=== PATIENT | female | born 1985 | race Asian ===

== ENCOUNTER 2017-08-04 18:09 | Inpatient (IN) | payer SELFPAY ==
[~2017-08-04] VITALS: Ht 150 cm; Wt 78.9 kg
[2017-08-04] MEDS ORDERED: LR 1,000 ML IV SCH ×2 (20:12→22:37)
[2017-08-04] MEDS ORDERED: CEFAZOLIN 2 GM IVPB PREMIX 50 ML IV ONE (20:15)
[2017-08-04] MEDS ORDERED: TEMAZEPAM 15 MG CAPSULE PO PRN (21:00)
[2017-08-04 21:25] LABS: MEAN CORPUSCULAR HGB CONC 34 % (32-36)
[2017-08-04 21:27] LABS: BASOPHILS % (AUTO) 0.2 % (0.0-2.0); EOSINOPHILS % (AUTO) 0.6 % (0.0-4.0); LYMPHOCYTES # (AUTO) 1.9 K/uL (1.0-5.5); LYMPHOCYTES % (AUTO) 26.1 % (20.5-51.5); MEAN CORPUSCULAR HEMOGLOBIN 32 pg (27-31); MEAN CORPUSCULAR VOLUME 93 fL (79.0-98.0); MONOCYTES # (AUTO) 0.7 K/uL (0.0-1.0); MONOCYTES % (AUTO) 8.9 % (1.7-9.3); NEUTROPHILS # (AUTO) 4.8 K/uL (1.8-7.7); NEUTROPHILS % (AUTO) 64.2 % (40.0-70.0); PLATELET COUNT (AUTO) 235 K/uL (130-430); RED CELL DISTRIBUTION WIDTH 13.9 % (9.0-15.0); WHITE BLOOD COUNT (AUTO) 7.4 K/uL (4.8-10.8)
[2017-08-04] MEDS ORDERED: DIPH-TET-PERTUS Vaccine 0.5 ML VIAL (ADACEL) I.M. ONE (21:30)
[2017-08-04] MEDS ORDERED: OXYTOCIN/NORMAL SALINE 1,000 ML IV ONE ×2 (21:49→23:12)
[2017-08-04] MEDS ORDERED: ANUSOL 1 EA SUPP.RECT (PREPARATION H) RC PRN (22:00)
[2017-08-04] MEDS ORDERED: MEASLES,MUMPS&RUBELLA VACC/PF 12500 UNIT/0.5 ML VIAL SUBQ PRN (22:00)
[2017-08-04] MEDS ORDERED: OXYCODONE/ACETAMINOPHEN 5-325 TABLET PO PRN ×2 (22:00)
[2017-08-04] MEDS ORDERED: LANOLIN 7 GM OINT. TP PRN (22:00)
[2017-08-04] MEDS ORDERED: HYDROcodone/ACETAMIN 5-325 MG TAB (NORCO/ VICODIN) PO PRN (22:00)
[2017-08-04] MEDS ORDERED: NALOXONE HCL 1 MG in NACL 0.9% 1,000 ML IV PRN ×4 (22:37)
[2017-08-04] MEDS ORDERED: MEPERIDINE HCL/PF 25 MG/ML DISP.SYRIN IVP PRN ×2 (22:45)
[2017-08-04] MEDS ORDERED: HYDROmorphone 2 MG/ML VIAL IVP PRN ×2 (22:45)
[2017-08-04] MEDS ORDERED: NALOXONE HCL 0.4 MG/ML AMP (NARCAN) IVP PRN ×3 (22:45)
[2017-08-04] MEDS ORDERED: DIPHENHYDRAMINE INJ 50 MG/ML VIAL IVP PRN (22:45)
[2017-08-04] MEDS ORDERED: DIPHENHYDRAMINE HCL 50 MG CAPSULE PO PRN (22:45)
[2017-08-04] MEDS ORDERED: HYDROmorphone 1 MG INJ. 1 MG/ML AMPUL IVP PRN (22:45)
[2017-08-04] MEDS ORDERED: ONDANSETRON HCL 4 MG/2 ML VIAL IVP PRN (22:45)
[2017-08-05] MEDS: CEFAZOLIN 1 GM IVPB PREMIX 50 ML IV SCH ×3 (01:16→12:11)
[2017-08-05 02:22] VITALS: BP_SYST 112
[2017-08-05] MEDS ORDERED: FLU VACC QS 2017-18(36MOS+)/PF 0.5 ML/SYR SYRINGE I.M. PRN (02:45)
[2017-08-05] MEDS: IBUPROFEN 600 MG TABLET PO SCH ×4 (06:00→17:32)
[2017-08-05 08:01] LABS: EOSINOPHILS % (AUTO) 0.1 % (0.0-4.0); HEMATOCRIT 34.5 % (36-48); HEMOGLOBIN 11.9 g/dL (12.0-16.0); LYMPHOCYTES # (AUTO) 1.5 K/uL (1.0-5.5); LYMPHOCYTES % (AUTO) 14.3 % (20.5-51.5); MEAN CORPUSCULAR HEMOGLOBIN 32 pg (27-31); MEAN CORPUSCULAR HGB CONC 34 % (32-36); MEAN CORPUSCULAR VOLUME 93 fL (79.0-98.0); MONOCYTES # (AUTO) 0.7 K/uL (0.0-1.0); MONOCYTES % (AUTO) 6.7 % (1.7-9.3); NEUTROPHILS # (AUTO) 8.2 K/uL (1.8-7.7); NEUTROPHILS % (AUTO) 78.9 % (40.0-70.0); PLATELET COUNT (AUTO) 200 K/uL (130-430); RED CELL DISTRIBUTION WIDTH 13.8 % (9.0-15.0); WHITE BLOOD COUNT (AUTO) 10.4 K/uL (4.8-10.8)
[2017-08-05] MEDS: DOCUSATE SODIUM 100 MG CAPSULE PO PRN (17:32)
[2017-08-05] MEDS: SIMETHICONE 80 MG TAB.CHEW PO PRN (17:32)
[2017-08-06] MEDS: IBUPROFEN 600 MG TABLET PO SCH ×5 (00:39→23:44)
[2017-08-07] MEDS: IBUPROFEN 600 MG TABLET PO SCH ×2 (05:34→12:30)
[2017-08-07] MEDS: DOCUSATE SODIUM 100 MG CAPSULE PO PRN (08:54)
[2017-08-07] MEDS: SIMETHICONE 80 MG TAB.CHEW PO PRN (08:56)
[2017-08-07] MEDS ORDERED: DIPH-TET-PERTUS Vaccine 0.5 ML VIAL (ADACEL) I.M. ONE (16:00)
== END 2017-08-07 16:15 | disposition home or self-care (01) | DRG 766 ==
LOC: SNS 18:09 → SPU 20:06
PROVIDERS: ADMIT Obstetrics & Gynecology; ATTEND Obstetrics & Gynecology
PROC: 10D00Z1 Extraction of Products of Conception, Low, Open Approach (ICD-10-PCS; principal; 2017-08-04 22:00)
DX: O41.03X0 Oligohydramnios, third trimester, not applicable or unspecified (principal); Z37.0 Single live birth; Z3A.39 39 weeks gestation of pregnancy
CPT/HCPCS: 36415; 85025; 86592; 86886; 86900; 86901; 94760; J0690; J2310; J2405; J2590; J7030; Q2037